=== PATIENT | female | born 1960 | race Caucasian/White ===

== ENCOUNTER → 2017-06-06 17:02 | Outpatient (CLI) | payer OTHER ==
[~2017-06-06] VITALS: Ht 152.4 cm; Wt 72.6 kg
[~2017-06-06 17:02] MED LIST: COZAAR50 MG; GLUCOPHAGE XR500 MG; LOVAZA1 G; METHOCARBAMOL500 MG PO; NABUMETONE750 MG PO
== END | disposition home or self-care (01) ==
LOC: PPHC 17:02
DX: Z00.00 Encounter for general adult medical examination without abnormal findings (principal)

== ENCOUNTER 2017-06-22 09:21 | Outpatient (CLI) | payer OTHER | END 2017-06-22 09:26 | disposition home or self-care (01) | LOC: MAMO-SONO 09:21 | DX: D25.1 Intramural leiomyoma of uterus (principal); D24.1 Benign neoplasm of right breast; Z12.31 Encounter for screening mammogram for malignant neoplasm of breast; N60.11 Diffuse cystic mastopathy of right breast ==

== ENCOUNTER 2017-06-22 09:36 | Outpatient (CLI) | payer OTHER | END 2017-06-22 09:39 | disposition home or self-care (01) | LOC: RAD 09:36 | DX: M47.892 Other spondylosis, cervical region (principal); M47.896 Other spondylosis, lumbar region ==

== ENCOUNTER → 2017-06-22 | Outpatient (CLI) | payer OTHER | END | disposition home or self-care (01) | LOC: LAB 07:53 | DX: I10 Essential (primary) hypertension (principal); E11.9 Type 2 diabetes mellitus without complications ==

== ENCOUNTER → 2018-03-29 10:42 | Outpatient (CLI) | payer OTHER | END | disposition home or self-care (01) | LOC: LAB 07:33 | DX: K57.30 Diverticulosis of large intestine without perforation or abscess without bleeding (principal); K21.9 Gastro-esophageal reflux disease without esophagitis; K86.2 Cyst of pancreas; Z80.0 Family history of malignant neoplasm of digestive organs; R00.2 Palpitations; I11.9 Hypertensive heart disease without heart failure; E78.2 Mixed hyperlipidemia; E11.9 Type 2 diabetes mellitus without complications; E55.9 Vitamin D deficiency, unspecified ==

== ENCOUNTER 2018-05-01 17:26 | Outpatient (CLI) | payer OTHER | END 2018-05-01 17:28 | disposition home or self-care (01) | LOC: LAB 17:26 | DX: Z01.812 Encounter for preprocedural laboratory examination (principal) ==

== ENCOUNTER 2018-05-03 15:06 | Outpatient (CLI) | payer OTHER | END 2018-05-03 15:07 | disposition home or self-care (01) | LOC: RAD 15:06 | DX: M54.2 Cervicalgia (principal) ==

== ENCOUNTER 2018-05-24 14:02 | Inpatient (IN) | payer OTHER ==
[~2018-05-24] VITALS: Ht 165.1 cm; Wt 72.6 kg
[~2018-05-24 14:02] MED LIST changes: -COZAAR50 MG; +COZAAR50 MG PO
== END 2018-06-04 15:43 | DRG 743 ==
LOC: SURH 05-31 07:00 → OB/GYN 05-31 07:01 → O/R 05-31 07:01 → SURH 05-31 10:57 → OB/GYN 05-31 17:31
PROVIDERS: Urology; ADMIT Obstetrics & Gynecology
PROC: 0UT70ZZ Resection of Bilateral Fallopian Tubes, Open Approach (ICD-10-PCS; 2018-05-31)
PROC: 0T788DZ Dilation of Bilateral Ureters with Intraluminal Device, Via Natural or Artificial Opening Endoscopic (ICD-10-PCS; 2018-05-31)
PROC: 0UT90ZZ Resection of Uterus, Open Approach (ICD-10-PCS; principal; 2018-05-31 07:00)
PROC: 0UT20ZZ Resection of Bilateral Ovaries, Open Approach (ICD-10-PCS; 2018-05-31 07:00)
DX: D25.1 Intramural leiomyoma of uterus (principal); D25.2 Subserosal leiomyoma of uterus; N72 Inflammatory disease of cervix uteri; N73.6 Female pelvic peritoneal adhesions (postinfective)

== ENCOUNTER 2018-06-20 14:51 | Outpatient (CLI) | payer OTHER | END 2018-06-20 14:53 | disposition home or self-care (01) | LOC: SONOGRAMA 14:51 | DX: N13.4 Hydroureter (principal) ==

== ENCOUNTER → 2018-06-20 | Outpatient (CLI) | payer OTHER | END | disposition home or self-care (01) | LOC: LAB 14:55 | DX: N30.00 Acute cystitis without hematuria (principal) ==

== ENCOUNTER 2018-07-06 10:35 | Outpatient (CLI) | payer OTHER | END 2018-07-06 11:18 | disposition home or self-care (01) | LOC: LAB 10:35 | DX: D64.89 Other specified anemias (principal) ==

== ENCOUNTER 2018-07-19 14:50 | Outpatient (CLI) | payer OTHER | END 2018-07-19 14:54 | disposition home or self-care (01) | LOC: MAMO-SONO 14:50 | DX: N60.11 Diffuse cystic mastopathy of right breast (principal); N60.12 Diffuse cystic mastopathy of left breast; Z12.31 Encounter for screening mammogram for malignant neoplasm of breast ==

== ENCOUNTER 2018-10-29 07:35 | Outpatient (CLI) | payer OTHER | END 2018-10-29 07:38 | disposition home or self-care (01) | LOC: MRI 07:35 | DX: R10.84 Generalized abdominal pain (principal); K86.2 Cyst of pancreas; Z80.0 Family history of malignant neoplasm of digestive organs | CPT/HCPCS: 74183 ==

== ENCOUNTER 2018-10-29 08:01 | Outpatient (CLI) | payer OTHER | END 2018-10-29 08:09 | disposition home or self-care (01) | LOC: LAB 08:01 | DX: K86.2 Cyst of pancreas (principal) ==

== ENCOUNTER → 2018-12-17 | Outpatient (CLI) | payer OTHER | END | disposition home or self-care (01) | LOC: TOM 08:35 | DX: Z86.010 Personal history of colon polyps (principal) ==

== ENCOUNTER → 2019-04-30 07:13 | Outpatient (CLI) | payer OTHER | END | disposition home or self-care (01) | LOC: LAB 07:13 | DX: E11.9 Type 2 diabetes mellitus without complications (principal); E78.2 Mixed hyperlipidemia; I11.9 Hypertensive heart disease without heart failure; I10 Essential (primary) hypertension ==

== ENCOUNTER 2019-06-11 04:49 | Emergency (ER) | payer OTHER ==
[~2019-06-11] VITALS: Ht 170.2 cm; Wt 79.4 kg
== END 2019-06-11 07:40 | disposition home or self-care (01) ==
LOC: ER 04:49
DX: I16.0 Hypertensive urgency (principal); I10 Essential (primary) hypertension

== ENCOUNTER → 2019-06-19 | Outpatient (CLI) | payer OTHER | END | disposition home or self-care (01) | LOC: TOM 09:00 | DX: J32.8 Other chronic sinusitis (principal) ==

== ENCOUNTER 2019-07-29 13:09 | Emergency (ER) | payer OTHER ==
[~2019-07-29] VITALS: Ht 165.1 cm; Wt 74.8 kg
== END 2019-07-29 15:14 | disposition home or self-care (01) ==
LOC: ER 13:09
DX: B34.9 Viral infection, unspecified (principal)

== ENCOUNTER 2019-08-02 09:28 | Outpatient (CLI) | payer OTHER | END 2019-08-02 09:35 | disposition home or self-care (01) | LOC: MAMO-SONO 09:28 | DX: Z12.31 Encounter for screening mammogram for malignant neoplasm of breast (principal); Z87.898 Personal history of other specified conditions; N60.11 Diffuse cystic mastopathy of right breast; N60.12 Diffuse cystic mastopathy of left breast ==

== ENCOUNTER → 2020-01-08 14:19 | Outpatient (CLI) | payer OTHER | END | disposition home or self-care (01) | LOC: LAB 10:48 | PROVIDERS: ATTEND Physical Medicine & Rehabilitation | DX: Z20.828 Contact with and (suspected) exposure to other viral communicable diseases (principal) ==

== ENCOUNTER 2020-02-07 08:34 | Outpatient (CLI) | payer OTHER | END 2020-02-07 08:45 | disposition home or self-care (01) | LOC: MRI 08:34 | PROVIDERS: ATTEND Internal Medicine Gastroenterology | DX: K86.2 Cyst of pancreas (principal) | CPT/HCPCS: 74183 ==

== ENCOUNTER 2020-02-07 09:21 | Outpatient (CLI) | payer OTHER | END 2020-02-07 09:30 | disposition home or self-care (01) | LOC: LAB 09:21 | PROVIDERS: ATTEND Allergy & Immunology Allergy | DX: N20.0 Calculus of kidney (principal); J30.89 Other allergic rhinitis; L50.0 Allergic urticaria; T50.905A Adverse effect of unspecified drugs, medicaments and biological substances, initial encounter ==

== ENCOUNTER 2020-08-17 08:00 | Outpatient (CLI) | payer OTHER | END 2020-08-17 13:43 | disposition home or self-care (01) | LOC: LAB 08:00 | PROVIDERS: ATTEND Internal Medicine Rheumatology | DX: M06.09 Rheumatoid arthritis without rheumatoid factor, multiple sites (principal); R76.0 Raised antibody titer; E78.01 Familial hypercholesterolemia; E11.9 Type 2 diabetes mellitus without complications ==

== ENCOUNTER 2020-08-17 11:48 | Outpatient (CLI) | payer OTHER | END 2020-08-17 11:51 | disposition home or self-care (01) | LOC: MAMO-SONO 11:48 | PROVIDERS: ATTEND Obstetrics & Gynecology | DX: Z12.31 Encounter for screening mammogram for malignant neoplasm of breast (principal); N60.11 Diffuse cystic mastopathy of right breast; N60.12 Diffuse cystic mastopathy of left breast ==

== ENCOUNTER → 2020-09-11 08:00 | Outpatient (CLI) | payer OTHER | END | disposition home or self-care (01) | LOC: LAB 08:00 | PROVIDERS: ATTEND Family Medicine | DX: D34 Benign neoplasm of thyroid gland (principal); E06.1 Subacute thyroiditis ==

== ENCOUNTER 2020-09-11 10:44 | Outpatient (CLI) | payer OTHER | END 2020-09-11 10:45 | disposition home or self-care (01) | LOC: SONOGRAMA 10:44 | PROVIDERS: ATTEND Family Medicine | DX: D34 Benign neoplasm of thyroid gland (principal); E06.1 Subacute thyroiditis ==

== ENCOUNTER 2021-05-09 06:03 | Emergency (ER) | payer OTHER ==
[~2021-05-09] VITALS: Ht 165.1 cm; Wt 72.6 kg
[2021-05-09] MEDS ORDERED: DIOVAN160 M1 PO (06:18)
[2021-05-09] MEDS ORDERED: CRESTOR5 MG PO (06:19)
== END 2021-05-09 09:43 | disposition home or self-care (01) ==
LOC: ER 06:03
DX: N39.0 Urinary tract infection, site not specified (principal)

== ENCOUNTER 2022-08-17 07:46 | Outpatient (CLI) | payer OTHER ==
[~2022-08-17 07:46] MED LIST changes: +CRESTOR5 MG PO; +DIOVAN160 M1 PO
== END 2022-08-17 07:56 | disposition home or self-care (01) ==
LOC: TOM 07:46
PROVIDERS: ATTEND Internal Medicine Gastroenterology
DX: K57.30 Diverticulosis of large intestine without perforation or abscess without bleeding (principal); K56.600 Partial intestinal obstruction, unspecified as to cause; Z86.010 Personal history of colon polyps

== ENCOUNTER 2022-11-02 11:28 | Outpatient (CLI) | payer OTHER | END 2022-11-02 11:30 | disposition home or self-care (01) | LOC: NUCLEAR 11:28 | PROVIDERS: ATTEND Obstetrics & Gynecology | DX: M81.0 Age-related osteoporosis without current pathological fracture (principal) ==

== ENCOUNTER → 2023-05-01 09:05 | Outpatient (CLI) | payer OTHER ==
[2023-05-01 10:39] LABS: HEMATOCRIT 39.1 % (36.0-45.00); HEMOGLOBIN 13.1 g/dL (12.0-15.00); MEAN CELL VOLUME 82.7 fL (80.00-100.00); MEAN CORPUSCULAR HEMOGLOBIN 27.8 pg (27.00-32.0); MEAN CORPUSCULAR HGB CONC 33.6 g/dl (32.0-36.0); PLATELET COUNT 162 K/uL (150-450); RED BLOOD COUNT 4.73 M/uL (4.00-6.00); RED CELL DISTRIBUTION WIDTH 14.6 % (11.5-14.5)
[2023-05-01 11:19] LABS: ALBUMIN 3.8 gm/dL (3.4-5.0); BILIRUBIN TOTAL 0.62 mg/dL (0.3-1.2); CALCIUM 8.8 mg/dL (8.5-10.1); CREATININE SERUM 0.75 mg/dL (0.55-1.02); FERRITIN 42.9 NG/ML (8-252); GFR 78.3; GLOBULINA 3.4 G/DL (2.4-3.5); POTASSIUM 4.53 mEq/L (3.5-5.1); TOTAL PROTEIN 7.2 gm/dL (6.4-8.2)
[2023-05-01 12:57] LABS: VITAMIN D3 25 HYDROXY 30.4 ng/ml (30-120)
== END | disposition home or self-care (01) ==
LOC: LAB 08:23
PROVIDERS: ATTEND Internal Medicine Gastroenterology
DX: E55.9 Vitamin D deficiency, unspecified (principal); D51.0 Vitamin B12 deficiency anemia due to intrinsic factor deficiency; G47.62 Sleep related leg cramps; K57.30 Diverticulosis of large intestine without perforation or abscess without bleeding; K21.9 Gastro-esophageal reflux disease without esophagitis; K86.2 Cyst of pancreas; Z80.0 Family history of malignant neoplasm of digestive organs; K30 Functional dyspepsia; Z86.010 Personal history of colon polyps; K31.7 Polyp of stomach and duodenum

== ENCOUNTER → 2023-05-26 08:04 | Outpatient (CLI) | payer OTHER ==
[2023-05-26 08:45] LABS: HEMATOCRIT 36.6 % (36.0-45.00); HEMOGLOBIN 12.2 g/dL (12.0-15.00); MEAN CELL VOLUME 81.4 fL (80.00-100.00); MEAN CORPUSCULAR HEMOGLOBIN 27.2 pg (27.00-32.0); MEAN CORPUSCULAR HGB CONC 33.4 g/dl (32.0-36.0); PLATELET COUNT 155 K/uL (150-450); RED BLOOD COUNT 4.49 M/uL (4.00-6.00); RED CELL DISTRIBUTION WIDTH 14.7 % (11.5-14.5)
[2023-05-26 09:09] LABS: PH,URINE 5.5 (5.0-8.0); URINE APPEARANCE Clear; URINE BILIRRUBIN Negative (NEGATIVE); URINE BLOOD Small; URINE COLOR Yellow; URINE GLUCOSE Negative (NEGATIVE); URINE LEUKOCYTE Negative; URINE NITRATE Negative; URINE PROTEIN Negative (NEGATIVE); URINE UROBILINOGEN 0.2 E.U./dl
[2023-05-26 09:10] LABS: URINE EPITHELIAL CELLS 11.8 uL (0.0-38.8); URINE RBC 24.7 uL (0.0-20.8)
[2023-05-26 09:29] LABS: ALBUMIN 3.8 gm/dL (3.4-5.0); BILIRUBIN TOTAL 0.59 mg/dL (0.3-1.2); CALCIUM 8.7 mg/dL (8.5-10.1); CHOL HDL RATIO 3.4 (0-5.0); CREATININE SERUM 0.72 mg/dL (0.55-1.02); GFR 82.08; GLOBULINA 3.4 G/DL (2.4-3.5); POTASSIUM 4.29 mEq/L (3.5-5.1); T4 FREE 0.97 NG/ML (0.76-1.46); TOTAL PROTEIN 7.2 gm/dL (6.4-8.2); TSH 3.6 uIU/mL (0.358-3.74)
[2023-05-26 09:43] LABS: T3 TOTAL 1.2 ng/ml (0.846-2.02); VITAMIN D3 25 HYDROXY 32.1 ng/ml (30-120)
== END | disposition home or self-care (01) ==
LOC: LAB 08:04
PROVIDERS: ATTEND Specialist
DX: D50.8 Other iron deficiency anemias (principal); N39.0 Urinary tract infection, site not specified; E11.42 Type 2 diabetes mellitus with diabetic polyneuropathy; E78.2 Mixed hyperlipidemia; E03.8 Other specified hypothyroidism; E55.9 Vitamin D deficiency, unspecified; E21.0 Primary hyperparathyroidism; E05.00 Thyrotoxicosis with diffuse goiter without thyrotoxic crisis or storm; D51.8 Other vitamin B12 deficiency anemias

== ENCOUNTER 2023-05-29 09:52 | Outpatient (CLI) | payer OTHER | END 2023-05-29 09:54 | disposition home or self-care (01) | LOC: MRI 09:52 | PROVIDERS: ATTEND Internal Medicine Gastroenterology | DX: K86.2 Cyst of pancreas (principal) | CPT/HCPCS: 74183 ==

== ENCOUNTER → 2023-06-27 | Outpatient (CLI) | payer OTHER | END | disposition home or self-care (01) | LOC: SONOGRAMA 09:30 | PROVIDERS: ATTEND Specialist | DX: E04.2 Nontoxic multinodular goiter (principal) ==

== ENCOUNTER → 2024-07-03 14:50 | Outpatient (CLI) | payer OTHER ==
[2024-07-03 08:35] LABS: HEMATOCRIT 40.4 % (36.0-45.00); HEMOGLOBIN 13.3 g/dL (12.0-15.00); MEAN CELL VOLUME 82.1 fL (80.00-100.00); MEAN CORPUSCULAR HEMOGLOBIN 26.9 pg (27.00-32.0); MEAN CORPUSCULAR HGB CONC 32.8 g/dl (32.0-36.0); PLATELET COUNT 171 K/uL (150-450); RED BLOOD COUNT 4.92 M/uL (4.00-6.00); RED CELL DISTRIBUTION WIDTH 14.6 % (11.5-14.5)
[2024-07-03 10:16] LABS: ALBUMIN 3.9 gm/dL (3.4-5.0); BILIRUBIN TOTAL 0.77 mg/dL (0.3-1.2); BILIRUBIN,CONJUGATED 0.17 mg/dL (0.0-0.2); BILIRUBIN,UNCONJUGATED 0.6 mg/dL (0.0-0.6); CALCIUM 8.7 mg/dL (8.5-10.1); CREATININE SERUM 0.73 mg/dL (0.55-1.02); FERRITIN 39.4 NG/ML (8-252); GFR 80.26; GLOBULINA 3.6 G/DL (2.4-3.5); POTASSIUM 4.34 mEq/L (3.5-5.1); TOTAL PROTEIN 7.5 gm/dL (6.4-8.2)
== END | disposition home or self-care (01) ==
LOC: LAB 08:06
PROVIDERS: ATTEND Internal Medicine Gastroenterology
DX: R05.9 Cough, unspecified (principal); U09.9 Post COVID-19 condition, unspecified; K76.0 Fatty (change of) liver, not elsewhere classified; K57.30 Diverticulosis of large intestine without perforation or abscess without bleeding; K21.9 Gastro-esophageal reflux disease without esophagitis; K86.2 Cyst of pancreas; Z80.0 Family history of malignant neoplasm of digestive organs

== ENCOUNTER 2024-07-04 14:39 | Outpatient (CLI) | payer OTHER | END 2024-07-04 14:41 | disposition home or self-care (01) | LOC: MRI 14:39 | PROVIDERS: ATTEND Internal Medicine Gastroenterology | DX: K86.2 Cyst of pancreas (principal) | CPT/HCPCS: 74185 ==

== ENCOUNTER → 2025-01-16 11:12 | Outpatient (CLI) | payer OTHER | END | disposition home or self-care (01) | LOC: NUCLEAR 10:30 | PROVIDERS: ATTEND Specialist | DX: M81.0 Age-related osteoporosis without current pathological fracture (principal) ==

== ENCOUNTER 2025-01-16 12:43 | Outpatient (CLI) | payer OTHER | END 2025-01-16 12:45 | disposition home or self-care (01) | LOC: MAMO-SONO 12:43 | PROVIDERS: ATTEND Obstetrics & Gynecology | DX: N20.1 Calculus of ureter (principal); R31.29 Other microscopic hematuria; N60.11 Diffuse cystic mastopathy of right breast; N60.12 Diffuse cystic mastopathy of left breast; Z12.31 Encounter for screening mammogram for malignant neoplasm of breast ==

== ENCOUNTER → 2025-01-16 14:17 | Outpatient (CLI) | payer OTHER ==
[2025-01-16 12:30] LABS: URINE APPEARANCE Clear; URINE BILIRRUBIN Negative (NEGATIVE); URINE BLOOD Negative; URINE COLOR Yellow; URINE GLUCOSE Negative (NEGATIVE); URINE KETONE Negative (NEGATIVE); URINE LEUKOCYTE Negative; URINE NITRATE Negative; URINE PROTEIN Negative (NEGATIVE); URINE UROBILINOGEN 0.2 E.U./dl
[2025-01-16 12:34] LABS: URINE BACTERIA 13.2 uL (0.0-1933); URINE EPITHELIAL CELLS 1.9 uL (0.0-38.8); URINE RBC 3.0 uL (0.0-20.8)
[2025-01-16 12:40] LABS: URINE CAST 0.00 uL (0.0-1.40); URINE WBC 0.6 uL (0.0-23.2)
== END | disposition home or self-care (01) ==
LOC: LAB 08:57
DX: N39.0 Urinary tract infection, site not specified (principal)

== ENCOUNTER 2025-05-08 10:42 | Outpatient (CLI) | payer OTHER ==
[2025-05-09] MEDS ORDERED: METHOCARBAMOL500 MG PO (12:19)
== END 2025-05-09 10:50 | disposition home or self-care (01) ==
LOC: RAD 10:42
PROVIDERS: ATTEND Internal Medicine Gastroenterology
DX: K86.2 Cyst of pancreas (principal); K42.9 Umbilical hernia without obstruction or gangrene
CPT/HCPCS: 74183